=== PATIENT | female | born 1950 | race Caucasian/White ===

== ENCOUNTER 2019-03-30 11:39 | Day surgery (SDC) | payer MEDICARE, OTHER ==
[2019-03-30] MEDS ORDERED: MIDAZOLAM 1 MG/ML 2 ML INJ (12:54)
[2019-03-30] MEDS ORDERED: PROPOFOL 40 ML (12:54)
[2019-03-30] MEDS ORDERED: PROPOFOL 200 MG INJ (13:34)
== END 2019-03-30 14:32 | disposition home or self-care (01) ==
LOC: GIL 11:39
DX: R19.4 Change in bowel habit (principal); K64.8 Other hemorrhoids; K44.9 Diaphragmatic hernia without obstruction or gangrene; K21.9 Gastro-esophageal reflux disease without esophagitis; I10 Essential (primary) hypertension; J45.909 Unspecified asthma, uncomplicated; E11.9 Type 2 diabetes mellitus without complications
CPT/HCPCS: 43239; 82962; 88305; 88312